=== PATIENT | male | born 1960 | race African-American/Black ===

== ENCOUNTER 2020-12-30 02:55 | Inpatient (IN) | payer MEDICAID ==
[~2020-12-30] VITALS: Ht 182.9 cm; Wt 115.9 kg
[2020-12-30] VITALS (415 sets, daily range): BP systolic 83–152; BP diastolic 58–101; PULSE 88–106; TEMP 97.7–99; O2SAT 91–100
[2020-12-30 03:21] LABS: BASO % 0.2 % (0.0-2.0); EOS # 0.1 (0.0-0.7); GRAN # 6.3 (1.4-6.5); GRAN % 64.5 % (42.2-75.2); HEMATOCRIT 43.6 % (42.0-52.0); HEMOGLOBIN 14.2 g/dl (13.5-18.0); LYMPH # 2.4 (1.2-3.4); MEAN CELL VOLUME 89 fl (80.0-100.0); MEAN CORPUSCULAR HEMOGLOBIN 29 pg (27.0-31.0); MEAN CORPUSCULAR HGB CONC 33 g/dl (33.0-37.0); MEAN PLATELET VOLUME 10.9 fl (7.4-10.4); PLATELET COUNT 211 K/mm3 (130-400); RED BLOOD COUNT 4.89 M/mm3 (4.20-5.60); REDCELL DISTRIBUTION WIDTH-CV 13.3 % (11.5-14.5)
[2020-12-30 03:36] LABS: BILIRUBIN,TOTAL 0.9 mg/dL (0.0-1.0); CALCIUM 8.9 mg/dL (8.4-10.2); CREATININE, serum 0.98 (0.66-1.25); TOTAL PROTEIN 7.6 gm/dL (6.4-8.2)
[2020-12-30 03:48] LABS: TROPONIN-I 0.054 ng/mL (0.000-0.035)
[2020-12-30] MEDS ORDERED: COREG 25MG25 MG/TAB PO (03:50)
[2020-12-30] MEDS ORDERED: AMARYL4 MG PO (03:52)
[2020-12-30] MEDS ORDERED: ASPIRIN 81M81 MG/TA2 PO (03:52)
[2020-12-30] MEDS ORDERED: BASAGLAR K100 UNIT/1 SQ (03:53)
[2020-12-30] MEDS ORDERED: LIPITOR 80MG80 MG PO (03:53)
[2020-12-30] MEDS ORDERED: PRINIVIL40 MG PO (03:54)
[2020-12-30] MEDS ORDERED: VOLTAREN GEL 1%1 TU TP (03:54)
[2020-12-30] MEDS ORDERED: GLUCOPHAGE1000 MG PO (03:55)
[2020-12-30] MEDS ORDERED: PRILOSEC 20MG20 MG (03:55)
[2020-12-30] MEDS ORDERED: ZANAFLEX CAPSULE4 MG PO (03:56)
[2020-12-30] MEDS ORDERED: DIABETA 5MG5 MG/TAB PO (03:57)
--- NOTE | 2020-12-30 08:30 | NUR ---
DR. MCELROY CALLED WITH CONSULT AND INFORMATION COMMUNICATED OVER THE PHONE. ORDERS RECEIVED TO ORDER BIDIL 20/37.5 TID AND DIETARY CONSULT FOR EDUCATION ON AHA DIET. HE STATES THAT PATIENT SHOULD FOLLOW UP WITH HIS [employer]OUN[employer] EQUIPMENT MECHANIC SOON RETURNING TO [place].
--- NOTE | 2020-12-30 10:59 | NUR ---
Plan to return to son's temporarily and then home to the [facility]. Assessment: SW met with patient about his plan. Patient reports that he is visiting his son locally. is [place] . Patient reports that he has a defibrulator for his heart but does not remember patient account representative name.Patient reports that his PCP is Dr. Regalado.Patient reports that he has a cane but uses prn. rX obtained at [facility]. Patient incidated that his is POA, no written forms on file. Action: Educated patient on care supports, declined [facility]. Educations on services. No additonal needs identified.
--- NOTE | 2020-12-30 12:57 | NUR ---
PATIENT CALLS RN AT THIS TIME. HE C/O BLURRY VISION AND DIZZINESS. BP IS NOTED TO BE HYPOTENSIVE. SEE VS RECORD FOR VALUES. PATIENT IS MOANING OUT IN DISCOMFORT. DR. AUSTIN CALLED AT THIS TIME. HE GIVES ORDERS FOR NS BOLUS. I ASK HIM TO COME SEE THE PATIENT WELL. HE STATES HE WILL BE HERE SHORTLY.
--- NOTE | 2020-12-30 13:30 | NUR ---
IVF BOLUS INFUSING. DR. AUSTIN HAS COME TO SEE THE PATIENT AND HE PUTS BP MEDS ON HOLD FOR NOW. HE STATES THAT IF HE REMAINS HYPOTENSIVE, I CAN GIVE A 2ND LITER OF FLUID BUT WE WILL SEE HOW HE DOES AFTER THE FIRST LITER. PATIENT ALREADY STATES THAT HE FEELS BETTER. WILL CONTINUE TO MONITOR
--- NOTE | 2020-12-30 14:00 | NUR ---
Patient states he feels much better and the symptoms have resolved. He is assisted to get up to the recliner. at bedside and she is updated on plan of care.
--- NOTE | 2020-12-30 16:59 | NUR ---
NS MAINTENANCE FLUIDS STOPPED AT THIS TIME D/T INCREASING BP. DR. AUSTIN GAVE VERBAL ORDER EARLIER THIS AFTERNOON TO WEAN DOWN FLUIDS THE BP RECOVERED.
--- NOTE | 2020-12-30 20:00 | NUR ---
PATIENT RELAXING IN RECLINER WATCHIN TV, PAIN 2/ TOLERABLE LOW BACK/ DENIES MEDICATION/
[2020-12-31] VITALS (353 sets, daily range): BP systolic 133–157; BP diastolic 85–114; PULSE 99–115; TEMP 97.8–99.1; O2SAT 92–100
[2020-12-31 05:43] LABS: CREATININE, serum 0.92 (0.66-1.25); POTASSIUM 3.6 mmol/L (3.4-5.0)
[2020-12-31 05:55] LABS: TROPONIN-I 0.033 ng/mL (0.000-0.035)
[2020-12-31 06:03] LABS: MAGNESIUM 1.9 mg/dL (1.6-2.3)
--- NOTE | 2020-12-31 07:15 | NUR ---
DR. AUSTIN CALLED AT THIS TIME. PATIENT HAD 4 BEAT RUN OF V-TACH AND THEN ENTERED A SINUS TACHYCARDIC RHYTHM WITH RATE OF 150-160 (PRESUMED SVT). BP REMAINED ELEVATED THROUGHOUT THIS EPISODE. ORDERS RECEIVED TO ADMINISTER AMIODARONE BOLUS AND START GTT. PATIENT CAME OUT OF THE SVT JUST PRIOR TO OBTAINING OFFICIAL EKG. RHYTHM CHANGE RECORDED ON REGULAR TELEMETRY MONITORING. THIS WILL BE SHOWN TO DR. AUSTIN WHEN HE ARRIVES.
--- NOTE | 2020-12-31 08:02 | NUR ---
DR. AUSTIN HERE TO SEE PATIENT.
--- NOTE | 2020-12-31 10:56 | NUR ---
DR. AUSTIN HAS ARRANGED FOR [facility] TO TAKE THIS PATIENT D/T THIS HOSPITAL NOT HAVING CARDIOLOGY COVERAGE THIS WEEKEND. PATIENT AND ARE AWARE OF THE TRANSFER. JESUS VARGASIRON SETTER ARRANGES FOR TRANSPORTATION TO [facility] AT 14:00 WITH TRANSPORT SERVICE OUT OF [place], [place].
--- NOTE | 2020-12-31 12:22 | NUR ---
REPORT CALLED TO JESUS RODRIGUEZ AT [facility]. PATIENT WILL TRANSPORT WITH [facility] VERY SOON.
--- NOTE | 2020-12-31 12:45 | NUR ---
PATIENT LEAVES WITH [facility] AT THIS TIME. GIVEN INFORMATION FOR ROOM AT [facility] IN [place].
== END 2020-12-31 12:45 | disposition short-term general hospital (02) | DRG 280 ==
LOC: COL.ER 02:55 → ICU 04:16
PROVIDERS: Emergency Medicine; ADMIT Internal Medicine
DX: I11.0 Hypertensive heart disease with heart failure (principal); I21.A1 Myocardial infarction type 2; J96.01 Acute respiratory failure with hypoxia; I47.1 Supraventricular tachycardia; E78.5 Hyperlipidemia, unspecified; I50.23 Acute on chronic systolic (congestive) heart failure; I25.10 Atherosclerotic heart disease of native coronary artery without angina pectoris; E11.9 Type 2 diabetes mellitus without complications; I16.0 Hypertensive urgency; K21.9 Gastro-esophageal reflux disease without esophagitis; Z79.82 Long term (current) use of aspirin; Z95.818 Presence of other cardiac implants and grafts; Z95.1 Presence of aortocoronary bypass graft; Z79.84 Long term (current) use of oral hypoglycemic drugs
CPT/HCPCS: 99223-AI; 99239; J0282; J1650; J1815; J1940; J2270; J7030; J7050; J7060

== ENCOUNTER → 2021-12-13 | Outpatient (CLI) | payer MEDICARE, MEDICAID ==
[~2021-12-13] MED LIST: AMARYL4 MG PO; ASPIRIN 81M81 MG/TA2 PO; BASAGLAR K100 UNIT/1 SQ; COREG 25MG25 MG/TAB PO; DIABETA 5MG5 MG/TAB PO; GLUCOPHAGE1000 MG PO; LIPITOR 80MG80 MG PO; PRILOSEC 20MG20 MG; PRINIVIL40 MG PO; VOLTAREN GEL 1%1 TU TP; ZANAFLEX CAPSULE4 MG PO
== END ==
LOC: COL.RAD 08:38
DX: R10.9 Unspecified abdominal pain (principal)

== ENCOUNTER 2022-01-09 09:42 | Emergency (ER) | payer MEDICARE, MEDICAID ==
[~2022-01-09] VITALS: Ht 182.9 cm; Wt 116.8 kg
[2022-01-09 09:52] VITALS: BP 112/75; TEMP 96.8
[2022-01-09] MEDS ORDERED: NORCO 325 MG-51 TAB PO ×4 (10:43→10:56)
[2022-01-09 11:06] VITALS: PULSE 73
== END 2022-01-09 11:06 | disposition home or self-care (01) ==
LOC: COL.ER 09:42
DX: S62.111A Displaced fracture of triquetrum [cuneiform] bone, right wrist, initial encounter for closed fracture (principal); W10.9XXA Fall (on) (from) unspecified stairs and steps, initial encounter; Z95.1 Presence of aortocoronary bypass graft; Z79.82 Long term (current) use of aspirin